=== PATIENT | male | born 1960 | race Caucasian/White ===

== ENCOUNTER 2023-03-26 13:33 | Outpatient (CLI) | payer OTHER ==
--- NOTE | 2023-03-26 18:29 | P.SLEEP ---
History of Present Illness DATE: 03/26/2023 CONSULTATION/NEW PATIENT EVALUATION HISTORY OF PRESENT ILLNESS/SLEEP-WAKE EVALUATION: 63 year old gentleman had been evaluated in the sleep center for possible obstructive sleep apnea hypopnea syndrome. Patient has history of obstructive sleep apnea hypopnea syndrome diagnosed about 10 years ago, he quit using any CPAP therapy about 4 years ago. SLEEP SCHEDULE: Usually sleep schedule from 10 PM to 4 AM. FALLING ASLEEP: Usually no problems with falling asleep. DURING SLEEP: Patient snores, has episodes of stop breathing during the sleep and awakenings with choking. No history of hypnogogical hallucinations, sleep paralysis, or cataplexy. DURING THE DAY/WAKE STATE: In the morning patient wake up tired. [place] sleepiness scale is 5. Patient may take 1 nap afternoon. 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 PAST SURGICAL HISTORY: Bilateral surgery for cataract treatment. MEDICATIONS: Carvedilol. SOCIAL HISTORY: Positive history of smoking for about 10 years, quit 45 years ago, no alcohol consumption . FAMILY HISTORY: []. REVIEW OF SYSTEMS: Snoring, episodes of sleepiness. No fevers. No double vision. No recent chest pain. No shortness of breath. No abdominal pain. No bleeding episodes. No blood in urine. No seizure episodes. PHYSICAL EXAMINATION: GENERAL: A pleasant patient without any distress. VITAL SIGNS: BP 155/72 , HR 74 , RR 16 , weight to 49.8 pounds, height 5 foot 8-3/4 inches, body mass index 37.0 . HEENT: PERRLA, EOMI. Evaluation of oropharynx showed tongue protrudes midline, low position of soft palate Mallampati 4. NECK: Supple. No JVD. Thyroid is not palpable. 17 inches in circumference. LUNGS: Clear to percussion and to auscultation. Good air exchange. No wheezing or rhonchi. HEART: S1, S2 regular. No murmurs, gallops or rubs. ABDOMEN: Soft and nontender. Bowel sounds are present. No organomegaly appreciated. EXTREMITIES: No clubbing or cyanosis. RN BARIATRIC: Awake, alert, and oriented x3. Cranial nerves 2 to 7 intact. There is no fasciculation or atrophy noted. No focal deficits observed. ASSESSMENT: 1. Snoring, extremely low position of soft palate Mallampati 4, wide neck 17 inches in circumference, episodes of sleepiness during the day, history of obstructive sleep apnea hypopnea syndrome in the past. Obstructive sleep apnea- hypopnea syndrome. 2. Hypertension. 3. History of hepatitis B and C. 4. History of G[place]ian [place] syndrome. 5 headaches. PLAN: 1. Polysomnography for evaluation of patient's breathing during sleep. 2. CPAP/BiPAP titration if sleep study confirms obstructive sleep apnea- hypopnea syndrome. 3. Preferable position during sleep on the side. 4. No driving if patient feels any sleepiness. Patient is aware of civil and criminal liability for unsafe driving. 5. Sleep hygiene with regular sleep time for at least 7.5-8 hours. 6. Watching and losing weight. Thank you very much for referring this patient for consultation. Sincerely, Ayo Malagon MD, PhD, FAASM. Diplomat of [employer], Sleep Medicine Board by [employer] [facility] Note - Sleep Note Sleep Note: Temperature: Pulse Rate: Respiratory Rate: Blood Pressure: SpO2: Height: Weight: BMI: Neck Circumference:
== END 2023-06-17 05:30 | disposition home or self-care (01) ==
LOC: 3 N SLEEP 13:33
PROVIDERS: ATTEND Internal Medicine
DX: G47.33 Obstructive sleep apnea (adult) (pediatric) (principal); I10 Essential (primary) hypertension; R51.9 Headache, unspecified; G61.0 Guillain-Barre syndrome; Z86.19 Personal history of other infectious and parasitic diseases; Z79.899 Other long term (current) drug therapy
CPT/HCPCS: 99211

== ENCOUNTER → 2023-08-05 | Outpatient (CLI) | payer OTHER ==
--- NOTE | 2023-08-05 17:50 | P.PN ---
Subjective DATE: 08/05/2023 TELEMEDICINE APPOINTMENT. I discussed with patient results of polysomnography in details. Sleep efficiency was decreased to 81.9%. Latency to sleep onset was short 5.5 minutes. Sleep architecture showed some abnormalities with increasing stage NI, absence of delta sleep and extremely short REM sleep. Respiratory channel did not show any apneas and it was documented only 6 hypopneas with total apnea hypopnea index 1.1, which is normal. Lowest oxygen level was 88%, which is normal. Heart rate in the range between 52 and 70, average 63. No periodic limb movements have been documented. Loud snoring have been documented during sleep study . MEDICATIONS:1. Carvedilol Impressions: 1. No significant respiratory abnormalities have been documented during the sleep test 2. No significant periodic limb movements have been documented. 3. Loud snoring have been documented during the sleep study. 4. Hypertension. 5. 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 6. History of hepatitis B and C. 7. History of headaches. Plan: 1. Patient was recommended to see ear nose and throat physician with treatment of snoring. 2. Sleep hygiene with regular time in bed for at least 8 hours. 3. Precautions related to driving. No driving if feel any sleepiness. Patient is aware about civil and criminal liability for unsafe driving, promised to follow recommendations. 4. Follow up visit in one year, if patient will have any problems. Thank you very much for allowing me to participate in the management of your patient. Ayo Malagon MD, PhD, FAASM. Diplomat of [employer], Sleep Medicine Board by [employer]
== END ==
LOC: 3 N SLEEP 17:26
PROVIDERS: ATTEND Internal Medicine
DX: I10 Essential (primary) hypertension (principal); G61.0 Guillain-Barre syndrome; Z86.19 Personal history of other infectious and parasitic diseases; Z86.69 Personal history of other diseases of the nervous system and sense organs
CPT/HCPCS: 99212